=== PATIENT | male | born 1965 | race Caucasian/White ===

== ENCOUNTER → 2018-11-16 | Outpatient (CLI) | payer BC ==
[2018-11-16 11:17] LABS: Albumin 4.5 g/dL (3.80-4.90); Albumin/Globulin Ratio 2.25 (1.60-3.17); Anion Gap 8.3 mmol/L (4.00-12.00); Calcium 9.4 mg/dL (8.7-10.3); Carbon Dioxide 22.7 mmol/L (21.6-31.8); LDL Cholesterol,Calculated 113.6 mg/dL (0.0-131.0); Potassium 4.4 mmol/L (3.5-5.5); Total Bilirubin 0.5 mg/dL (0.2-1.2); Total Protein 6.5 g/dL (6.2-8.2); VLDL Calculation 24.4 mg/dL (5.00-40.00)
[2018-11-16 14:35] LABS: Hemoglobin A1C 11.6 % (4.0-6.0)
== END ==
LOC: LABWHC1 06:53
DX: E78.5 Hyperlipidemia, unspecified (principal); E11.9 Type 2 diabetes mellitus without complications
CPT/HCPCS: 36415; 80053; 80061; 83036

== ENCOUNTER → 2021-03-26 | Outpatient (CLI) | payer OTHER ==
--- NOTE | 2021-03-26 11:23 | XR ---
EXAMINATION TYPE: XR shoulder complete LT DATE OF EXAM: 03/26/2021 CLINICAL HISTORY: pain COMPARISON: NONE TECHNIQUE: Three views of the left shoulder are obtained. FINDINGS: There is no acute fracture/dislocation evident. The acromioclavicular and glenohumeral real int spaces appear within normal limits. The visualized ribs are intact and unremarkable. IMPRESSION: 1. There is no acute fracture or dislocation. ICD 10 NO FRACTURE, INITIAL EVALUATION
--- NOTE | 2021-03-26 11:24 | XR ---
EXAMINATION TYPE: XR elbow complete LT DATE OF EXAM: 03/26/2021 CLINICAL HISTORY: pain TECHNIQUE: Frontal, lateral and oblique images of the left elbow are obtained. COMPARISON: None. FINDINGS: Virtually nondisplaced radial head fracture. Pathologic anterior and posterior fat pads not ed. No additional fracture seen. IMPRESSION: Virtually nondisplaced radial head fracture. ICD 10 closed FRACTURE, INITIAL EVALUATION
== END | disposition home or self-care (01) ==
LOC: RADXRMAIN 10:54
PROVIDERS: ATTEND Emergency Medicine
DX: S52.125A Nondisplaced fracture of head of left radius, initial encounter for closed fracture (principal); X58.XXXA Exposure to other specified factors, initial encounter

== ENCOUNTER → 2021-09-13 | Outpatient (CLI) | payer BC ==
[2021-09-13 11:58] LABS: African American GFR (CKD) 110.5 (60.0-200.0); BUN/Creat Ratio 19.33 Ratio (12.00-20.00); Blood Urea Nitrogen 17.3 mg/dL (9.0-27.0); Carbon Dioxide 22.7 mmol/L (20.0-27.5); Chloride 105 mmol/L (96-109); Chol/HDL Ratio 3.71 Ratio; Glucose 146 mg/dL (70-110); LDL Cholesterol,Calculated 89.6 mg/dL (0.0-131.0); Non-African American GFR(CKD) 95.4 (60.0-200.0); Potassium 4.3 mmol/L (3.5-5.5); Sodium 139 mmol/L (135-145); VLDL Calculation 18.46 mg/dL (5.00-40.00)
[2021-09-13 18:49] LABS: Microalbumin Creatinine Ratio <30 mg/g Creat (0-30); Urine Creatinine 91.5 mg/dL (39.0-259.0)
== END | disposition home or self-care (01) ==
LOC: LABWHC1 08:25
PROVIDERS: ATTEND Family Medicine
DX: E11.65 Type 2 diabetes mellitus with hyperglycemia (principal)
CPT/HCPCS: 36415; 80048; 80061; 82043; 82570; 83036; 84439; 84443

== ENCOUNTER → 2022-01-03 | Outpatient (CLI) | payer BC | END | disposition home or self-care (01) | LOC: LABWHC1 07:17 | PROVIDERS: ATTEND Family Medicine | DX: E11.65 Type 2 diabetes mellitus with hyperglycemia (principal) | CPT/HCPCS: 36415; 83036 ==

== ENCOUNTER → 2022-07-04 | Outpatient (CLI) | payer BC | END | disposition home or self-care (01) | LOC: LABWHC1 08:10 | PROVIDERS: ATTEND Family Medicine | DX: E11.65 Type 2 diabetes mellitus with hyperglycemia (principal) | CPT/HCPCS: 36415; 83036 ==

== ENCOUNTER → 2024-12-30 | Outpatient (CLI) | payer OTHER ==
[2024-12-30 14:49] LABS: ALT 19 U/L (10-49); AST 16 U/L (14-35); Cholesterol 128.00 mg/dL (0.00-200.00); HDL Cholesterol 40.80 mg/dL (40.00-60.00); LDL Cholesterol,Calculated 68.5 mg/dL (0.0-131.0); Triglycerides 93.40 mg/dL (0.00-149.00); VLDL Calculation 18.68 mg/dL (5.00-40.00)
== END | disposition home or self-care (01) ==
LOC: LABWHC1 08:23
PROVIDERS: ATTEND Internal Medicine
DX: E78.2 Mixed hyperlipidemia (principal)
CPT/HCPCS: 36415; 80061; 84450; 84460